=== PATIENT | female | born 1945 | race Caucasian/White ===

== ENCOUNTER → 2016-09-23 16:29 | Outpatient (CLI) | payer MEDICARE | END | disposition home or self-care (01) | LOC: D.MAMMO 14:30 | DX: R92.8 Other abnormal and inconclusive findings on diagnostic imaging of breast (principal) ==

== ENCOUNTER 2019-04-23 09:00 | Outpatient (CLI) | payer MEDICARE | END 2019-04-23 10:00 | disposition home or self-care (01) | LOC: D.MAMMO 09:00 | PROVIDERS: ATTEND Family Medicine | DX: Z12.31 Encounter for screening mammogram for malignant neoplasm of breast (principal) ==